=== PATIENT | male | born 1955 ===

== ENCOUNTER 2024-12-31 08:34 | Day surgery (SDC) | payer MEDICARE ==
[2024-12-25 09:30] VITALS: BMI 28.8
[2024-12-31] MEDS: IV FLUID CONTINUATION 1,000 ML IV ONE ×2 (09:06→09:20)
[2024-12-31 09:09] VITALS: TEMP 97.8
[2024-12-31] MEDS: LACTATED RINGERS 1,000 ML IV SCH (09:17)
[2024-12-31] MEDS ORDERED: LIDOCAINE 1% INJ 10MG/ML (20 ML MDV) ONE (09:21)
[2024-12-31] MEDS ORDERED: PROPOFOL 10 MG/ML 20 ML VIAL IV ONE (09:21)
--- NOTE | 2024-12-31 09:25 | P.GSHP ---
History of Present Illness H&P Date: 12/31/24 Chief Complaint: Colon cancer screening 69-year-old male here for colonoscopy. Last colonoscopy 10 years or more ago while he lived in [place]. He thinks that was normal. That was his first colonoscopy. No family history of colon cancer. No bowel complaints. Past Medical History Past Medical History: GERD/Reflux, Hypertension History of Any Multi-Drug Resistant Organisms: None Reported Past Surgical History: Orthopedic Surgery, Tonsillectomy Additional Past Surgical History / Comment(s): knee scope-not sure which side. colonoscopy Past Anesthesia/Blood Transfusion Reactions: No Reported Reaction Smoking Status: Never smoker - Past Family History Father Family Medical History: Deep Vein Thrombosis (DVT) Mother Family Medical History: Cancer Medications and Allergies Home Medications Medication Instructions Recorded Confirmed Type Omeprazole 20 mg PO DAILY 12/25/24 12/31/24 History lisinopriL 40 mg PO DAILY 12/25/24 12/31/24 History tadalafiL 5 mg PO DAILY 12/25/24 12/31/24 History Allergies Allergy/AdvReac Type Severity Reaction Status Date / Time No Known Allergies Allergy Verified 12/31/24 09:04 Surgical - Exam Vital Signs Temp Pulse Resp BP Pulse Ox 97.8 F 51 L 18 136/77 96 12/31/24 09:05 12/31/24 09:05 12/31/24 09:05 12/31/24 09:05 12/31/24 09:05 Physical exam: General: Well-developed, well-nourished HEENT: Normocephalic, sclerae nonicteric Abdomen: Nontender, nondistended Extremities: No edema Neuro: Alert and oriented Assessment and Plan (1) Colon cancer screening Narrative/Plan: Will proceed with colonoscopy at this time. Current Visit: Yes Status: Acute Code(s): Z12.11 - ENCOUNTER FOR SCREENING FOR MALIGNANT NEOPLASM OF COLON SNOMED Code(s): 227274512
--- NOTE | 2024-12-31 09:34 | P.PCN ---
Date of Procedure: 12/31/24 Procedure(s) Performed: PREOPERATIVE DIAGNOSIS: Colon cancer screening POSTOPERATIVE DIAGNOSIS: Normal exam PROCEDURE: Colonoscopy ANESTHESIA: MAC SURGEON: Tyrese Macdonald M.D. SPECIMENS: None ENDOSCOPIC PROCEDURE: The patient was placed on the endoscopy table in the left decubitus position. The Olympus colonoscope was inserted into the anus and passed under direct visualization to the base of the cecum. The appendiceal orifice was visualized. From that point the scope was slowly withdrawn inspecti ng all surfaces carefully. There were no neoplastic inflammatory or polypoid lesions throughout the cecum, ascending, transverse, descending, sigmoid and rectum. There was no visible diverticulosis noted. Digital rectal examination was normal. The patient was taken to the recovery room in stable condition per anesthesia guidelines. RECOMMENDATIONS: Resume diet. Repeat colonoscopy 10 years.
[2024-12-31 09:58] VITALS: BP 120/85; PULSE 50; RESP 14
== END 2024-12-31 10:28 | disposition home or self-care (01) ==
LOC: ORWHC2ENDO 08:34
PROVIDERS: ATTEND Surgery
DX: Z12.11 Encounter for screening for malignant neoplasm of colon (principal); I10 Essential (primary) hypertension; K21.9 Gastro-esophageal reflux disease without esophagitis; Z79.899 Other long term (current) drug therapy
CPT/HCPCS: J2003; J2704; G0121